=== PATIENT | female | born 1995 | race Caucasian/White ===

== ENCOUNTER 2017-03-19 02:00 | Inpatient (IN) | payer OTHER ==
--- NOTE | ~2017-03-19 | PA ---
Unit #: [id number] #: [id number] Patient: RYAN GARCIA [id number] [facility] [address] [place] [address] [id number] I MR#: [id number] NAME: RYAN GARCIA ROOM: P132 Age: 21 Sex: F Admission Date: 03/19/2017 : 1995 Date of Assessment: 03/19/2017 Attending Physician: Jarocho Jovel M.D. Admitting Physician: Jarocho Jovel M.D. Primary Care Physician: Primary Care Physician No PSYCHIATRIC ASSESSMENT DATE OF SERVICE 03/19/2017. IDENTIFYING DATA Ms. Garcia is a 21-year-old single white female, who is a resident of [place], [place], and was brought to the hospital accompanied by her family and initial assessment was completed at the [facility] in [place], [place]. CHIEF COMPLAINT "Panic attack and depression." HISTORY OF PRESENT ILLNESS Ms. Garcia is a 21-year-old white female with history of mood disorder, who was brought to the hospital by her family as a transfer from the [facility] in [place], [place], and upon presentation, the patient was seen to be acutely psychotic, agitated, aggressive, and hostile and code had to be called and she was initially given oral Thorazine without any calming down effect and she had to be given injection of Thorazine and injection of Benadryl in combination, and the patient was seen to be extremely agitated, irritable, psychotic, and out of touch with reality and reported increasing anxiety and depression and history of suicidal ideation as well and that she has not worked for the last 2 years due to anxiety and depression and reports smoking marijuana regularly to manage her depression and anxiety and was seen to be exhibiting significant mood instability with agitation, irritability, impulsivity, and was seen to be out of touch with reality, and as such, recommendation for inpatient level of care for safety and stabilization was made and the patient was transferred to us. SUBSTANCE ABUSE HISTORYDOS The patient has a history of alcohol, cannabis, cocaine, and benzodiazepines, and currently, she reports cannabis to be her drug of choice as she reports that she has been using cannabis on a regular basis, though she has snorted cocaine in the last week as well. PAST PSYCHIATRIC HISTORY The patient has had a history of outpatient psychiatric treatment. Review of the medical records indicate currently she is not active in any treatment program, is not seeing a psychiatrist, and is not taking any psychotropic medications. PAST MEDICAL HISTORY Unit #: [id number] #: [id number] Patient: RYAN GARCIA Anemia and scoliosis. PERSONAL AND SOCIAL HISTORY A 21-year-old white female, who reports that she is single, unemployed, and lives at home with her family and has poor social support system. MENTAL STATUS EXAMINATION Young white female, who was casually dressed with fair personal hygiene, appears to be in no acute distress or discomfort. She was awake and alert on interaction with intact orientation to time, place, and person. Her mood was anxious and depressed with a congruent affect. Her speech was slow and restricted in content. Her thought processes were disorganized with some looseness of associations and flight of ideas and paranoid ideations and delusional behavior. Her insight and judgment remain significantly impaired. DIAGNOSTIC IMPRESSION Psychiatric: Bipolar disorder, most recent episode depressed, recurrent, moderate, without psychotic features; generalized anxiety disorder; cannabis abuse, moderate; and cocaine abuse, moderate. Medical: Anemia and scoliosis. Stressors: Moderate psychosocial stressors. TREATMENT PLAN 1. The patient has presented with a history of substance abuse and mood disorder and has been decompensating and will need inpatient hospitalization for safety and stabilization. We will start her back on her home medications and we will adjust the medications and monitor response. 2. Supportive therapy was provided to the patient. 3. Safe, structured, and nourishing environment will be provided. ESTIMATED LENGTH OF STAY 4 to 5 days. ABILITY TO HELP SELF Limited. WILLINGNESS TO HELP SELF The patient appears to be willing to help self. STRENGTHS 1. Communicative. 2. Cooperative. PROBLEMS 1. Chronic dysphoric symptoms. 2. Poor social support system. DISCHARGE CRITERIA This will be contingent upon the patient's ability to show resolution of her depression and anxiety and her ability to stay safe to herself, particularly after discharge from the hospital. Dictated by... Jarocho Jovel M.D. Unit #: [id number] #: [id number] Patient: RYAN GARCIA IAA/modl TD: 03/20/2017 20:27 JOB #: [id number] PSYCHIATRIC ASSESSMENT Page 1 of 1 X Jarocho Jovel MD PSYCHIATRIC ASSESSMENT
--- NOTE | ~2017-03-19 | HP ---
Unit #: [id number] #: [id number] Patient: CORTNEY GRIGGS [id number] [place] [address] [id number] I MR#: [id number] NAME: CORTNEY GRIGGS ROOM: P132 Age: 21 Sex: F Admission Date: 03/19/2017 : 1995 Attending Physician: Jarocho Jovel M.D. Admitting Physician: Jarocho Jovel M.D. Primary Care Physician: Primary Care Physician No HISTORY AND PHYSICAL HISTORY OF PRESENT ILLNESS Cortney is a 21 year old admitted to [address] [place] [address] with depression and increased anxiety. PAST MEDICAL HISTORY History of anemia. PAST SURGICAL HISTORY Pilonidal cyst resected. ALLERGIES Sulfa. SOCIAL HISTORY Smokes 1 pack per day. Drinks alcohol on occasion. Admits to using marijuana daily and regular use of cocaine and benzodiazepines. FAMILY HISTORY Medically noncontributory. REVIEW OF SYSTEMS CONSTITUTIONAL: No fever or chills. HEENT: Denies any sore throat, ear pain or runny nose. CARDIOVASCULAR: Denies chest pain, irregular heart rhythm or palpitations. CHEST: Denies shortness of breath or cough. No hemoptysis. GASTROINTESTINAL: Denies nausea, vomiting, diarrhea or chronic constipation. ENDOCRINE: Denies history of increased thirst or urination. No recent significant weight loss or gain. GENITOURINARY: Denies dysuria, frequency, or hematuria. SKIN: Denies any rashes. HEMATOLOGIC: Denies history of increased bleeding or bruising. MUSCULOSKELETAL: Denies any hot, swollen joints. No generalized muscle pain. NEUROLOGIC: Denies problems with vision or speech. No frequent, severe headaches. No numbness, tingling or weakness in any extremities. Denies loss of bladder or bowel control. CURRENT MEDICATIONS Detox protocol. PHYSICAL EXAMINATION GENERAL: Alert, well-nourished, in no apparent distress. Unit #: [id number] #: [id number] Patient: CORTNEY GRIGGS VITAL SIGNS: Blood pressure 110/62, heart rate 80, respirations 16, temperature 98.6. SKIN: Warm and dry without rash or lesion. HEENT: Normocephalic. TMs not viewed. Oral and nasal passages clear. Conjunctivae clear. PERRLA. EOMs intact. NECK: Supple without lymphadenopathy or thyromegaly. HEART: Regular rate and rhythm without murmur. LUNGS: Clear. ABDOMEN: Soft, nontender. : Not done. EXTREMITIES: No evidence of cyanosis, clubbing or edema. Moves all without focal deficit. NEUROLOGICAL: Grossly within normal limits. Cranial Nerves: II: Visual kc are intact. III, IV AND : Extraocular movements are intact. Pupils are equal, round and reactive to light. V: Facial sensation is grossly normal. VII: Facial movements and expression are normal. VIII: Auditory acuity grossly intact. IX, X: Uvula is midline. Phonation is normal. XI: Patient shrugs shoulders and turns head normally. XII: Tongue protrudes in the midline. Sensory and Motor Function: Sensory and motor sensation is grossly normal. Motor: moves all extremities well. Coordination: Gait is normal. Deep Tendon Reflexes: Intact. IMPRESSION Psychiatric admission. RECOMMENDATIONS PSYCHIATRIC: Per psychiatrist. MEDICAL: See no contraindication to participate in facility's activities. MEDICAL PROGNOSIS Good. MEDICAL CONDITION Stable. Dictated by... Edi AlAJyothi. for Joon Colbert/johnathan TD: 03/19/2017 20:17 JOB #: [id number] Unit #: [id number] #: [id number] Patient: CORTNEY GRIGGS HISTORY AND PHYSICAL Page 1 of 1 X Ilana Victor HISTORY AND PHYSICAL
--- NOTE | ~2017-03-19 | PN ---
Unit #: [id number] #: [id number] Patient: RYAN GRIGGS [id number] [facility] [address] [place] [address] [id number] I MR#: [id number] NAME: RYAN GRIGGS ROOM: 73 Age: 21 Sex: F Admission Date: 03/19/2017 : 1995 Attending Physician: Jarocho Jovel M.D. Admitting Physician: Jarocho Jovel M.D. Primary Care Physician: Primary Care Physician Cathleen RANGEL PROGRESS NOTES NOTE: Mental status examination and treatment plan are dictated as an addendum under J# [id number]. DATE March 21, 2017 DISCUSSION Ms. Griggs is a 21-year-old white female, with mood disorder and psychosis, who was seen today and chart was reviewed and the case was discussed with the staff. She remains anxious, withdrawn, disorganized and seclusive to herself, however, she has not shown any agitation or aggression and seems to be doing somewhat better with her psychosis, and depression. Dictated by... Joon Magana/erin TD: 03/22/2017 12:10 JOB #: [id number] [facility] PROGRESS NOTES Page 1 of 1 X Jarocho Jovel MD PROGRESS NOTE
--- NOTE | ~2017-03-19 | PN ---
Unit #: [id number] #: [id number] Patient: RYAN GRIGGS [id number] [facility] [address] [place] [address] [id number] I MR#: [id number] NAME: RYAN GRIGGS ROOM: 32 Age: 21 Sex: F Admission Date: 03/19/2017 : 1995 Attending Physician: Jarocho Jovel M.D. Admitting Physician: Jarocho Jovel M.D. Primary Care Physician: Primary Care Physician Cathleen HAGEN NOTES DATE 03/20/2017 DISCUSSION Ms. rGiggs is a 21-year-old white female who was seen today and chart was reviewed and case was discussed with the staff. She has been anxious, restless, agitated ____ a day yesterday with multiple injections of p.r.n. medications to be given to cut down on agitation and aggression and she continues to be that way this morning and showing very poor insight into her situation and crying and sitting on the floor and wanting to leave and showing very poor insight into her situation. As such, will continue to monitor her response. Will make further adjustments on her medications. Dictated by... Joon Magana/johnathan TD: 03/20/2017 17:44 JOB #: [id number] JUAN CARLOS HAGEN NOTES Page 1 of 1 X Jarocho Jovel MD PROGRESS NOTE
--- NOTE | ~2017-03-19 | PN ---
Unit #: [id number] #: [id number] Patient: RYAN GRIGGS [id number] [facility] [address] [place] [address] [id number] I MR#: [id number] NAME: RYAN GRIGGS ROOM: P184 Age: 21 Sex: F Admission Date: 03/19/2017 : 1995 Attending Physician: Jarocho Jovel M.D. Admitting Physician: Jarocho Jovel M.D. Primary Care Physician: Primary Care Physician Cathleen HAGEN NOTES DATE March 22, 2017 DISCUSSION Ms. Griggs is a 21-year-old white female, who was seen today and chart was reviewed and the case was discussed with the staff. She appears to be doing somewhat better and has been calm and cooperative with the treatment recommendations and she has been taking the medications and tolerating them fairly well with no reported side effects. MENTAL STATUS EXAMINATION Young white female, who was casually dressed with fair personal hygiene and appears to be in no acute distress or discomfort. The patient was awake and alert on interaction with intact orientation. Her mood was anxious with a congruent affect. The patient denies any suicidal or homicidal ideations. Her insight and judgment remain slightly impaired. TREATMENT PLAN We will continue her on her current medications and treatment protocol, and will monitor her response to the medications, and make further adjustments as needed. Dictated by... oJon Maagna/erin TD: 03/23/2017 10:08 JOB #: [id number] [facility] PROGRESS NOTES Page 1 of 1 X Jarocho Jovel MD PROGRESS NOTE
--- NOTE | ~2017-03-19 | PN ---
Unit #: [id number] #: [id number] Patient: RYAN GRIGGS [id number] [facility] [address] [place] [address] [id number] I MR#: [id number] NAME: RYAN GRIGGS ROOM: 84 Age: 21 Sex: F Admission Date: 03/19/2017 : 1995 Attending Physician: Jarocho Jovel M.D. Admitting Physician: Jarocho Jovel M.D. Primary Care Physician: Primary Care Physician Cathleen HAGEN NOTES DATE March 23, 2017 DISCUSSION Ms. Griggs is a 21-year-old white female, who was seen today and chart was reviewed and the case was discussed with the staff. The patient has been anxious, withdrawn, and rather seclusive to herself. Meanwhile, she has been cooperative with the treatment recommendations and she has been exhibiting very impulsive and child-like attitude and behavior, and has been pushing to leave the hospital, and trying to minimize her symptoms and presentation. MENTAL STATUS EXAMINATION Young white female, who was casually dressed with fair personal hygiene and appears to be in no acute distress or discomfort. She was awake and alert with intact orientation. Her mood was anxious with a congruent affect. The patient denies any suicidal or homicidal ideations. Her insight and judgment remain slightly impaired. TREATMENT PLAN We will continue her on her current treatment protocol, and will monitor her response, and make further adjustments as needed. Dictated by... Joon Magana/erin TD: 03/24/2017 10:40 JOB #: [id number] Unit #: [id number] #: [id number] Patient: RYAN GRIGGS JUAN CARLOS PROGRESS NOTES Page 1 of 1 X Jarocho Jovel MD PROGRESS NOTE
--- NOTE | ~2017-03-19 | DS ---
Unit #: [id number] #: [id number] Patient: RYAN GARCIA [id number] [facility] [address] [place] [address] [id number] I MR#: [id number] NAME: RYAN GARCIA ROOM: P184 Age: 21 Sex: F Admission Date: 03/19/2017 : 1995 Discharge Date: 03/24/2017 Attending Physician: Jarocho Jovel M.D. Primary Care Physician: Primary Care Physician No DISCHARGE SUMMARY IDENTIFYING DATA Ms. Garcia is a 21-year-old single white female, who is a resident of [place], [place], and was brought to the hospital accompanied by her family. Initial assessment was completed at the [facility] in [place], [place]. DISCHARGE DIAGNOSES Psychiatric: Bipolar disorder, most recent episode depressed, recurrent, moderate, without psychotic features; generalized anxiety disorder; cannabis abuse, moderate; cocaine abuse, moderate. Medical: Anemia, scoliosis. Stressors: Moderate psychosocial stressors. HISTORY OF PRESENT ILLNESS Please see initial psychiatric evaluation for details. PAST PSYCHIATRIC HISTORY Please see initial psychiatric evaluation for details. PAST MEDICAL HISTORY Please see initial psychiatric evaluation for details. HOSPITAL COURSE The patient was admitted to the adult psychiatric unit at [facility]a [facility] and was oriented to the hospital environment. Routine p.r.n. medications were initiated and upon initial presentation, the patient was seen to be extremely agitated, irritable, hostile, and p.r.n. medications had to be given and she was then started on Paxil and Risperdal and was closely monitored. She was taking the medications regularly and was tolerating them fairly well and was able to show a decent therapeutic response and as such, it was decided that she will be discharged home and will continue treatment on an outpatient basis. DISCHARGE MEDICATIONS Risperdal 1 mg b.i.d. for psychosis, Paxil 20 mg at bedtime for depression. DISCHARGE CONDITION Stable. PROGNOSIS Fair. Dictated by... Unit #: [id number] #: [id number] Patient: RYAN GARCIA Jarocho Jovel M.D. IAA/modl TD: 03/24/2017 07:10 JOB #: [id number] DISCHARGE SUMMARY Page 1 of 1 X Jarocho Jovel MD DISCHARGE SUMMARY
--- NOTE | ~2017-03-19 | PN ---
Unit #: [id number] #: [id number] Patient: RYAN GRIGGS [id number] [facility] [address] [place] [address] [id number] I MR#: [id number] NAME: RYAN GRIGGS ROOM: [facility] Age: 21 Sex: F Admission Date: 03/19/2017 : 1995 Attending Physician: Jarocho Jovel M.D. Admitting Physician: Jarocho Jovel M.D. Primary Care Physician: Primary Care Physician No JAVIERCE PROGRESS NOTES ADDENDUM REPORT DATE March 21, 2017 DISCUSSION MENTAL STATUS EXAMINATION Young white female, who was casually dressed with fair personal hygiene and appears to be in no acute distress or discomfort. She was awake and alert with impaired attention and concentration. Her mood is anxious with a congruent affect. The patient denies any suicidal or homicidal ideation. Her insight and judgment remain significantly impaired. TREATMENT PLAN 1. We will continue her on her current medications and treatment protocol, and will monitor her response to the medications, and make further adjustments as needed. 2. We will continue to followup. Dictated by... Joon Magana/erin TD: 03/22/2017 12:57 JOB #: [id number] [facility] PROGRESS NOTES Page 1 of 1 X Jarocho Jovel MD PROGRESS NOTE
[2017-03-20 12:14] LABS: BASOPHIL# 0.1 X10e3 (0-0.3); BASOPHIL% 0.9 % (0-2.5); EOSINOPHIL# 0.3 X10e3 (0-0.7); EOSINOPHIL% 3.7 % (0.0-7.0); HEMATOCRIT 39.2 % (35.0-45.0); HEMOGLOBIN 12.9 gm/dL (12.0-16.0); LYMPHOCYTE# 1.6 X10e3 (1.0-3.5); LYMPHOCYTE% 24.1 % (17.0-45.0); MEAN CELL VOLUME 95.2 FL (83-96); MEAN CORPUSCULAR HEMOGLOBIN 31.4 PG (28-34); MEAN PLATELET VOLUME 8.1 FL (6.5-11.5); MONOCYTE# 0.7 X10e3 (0-1.0); MONOCYTE% 10.1 % (3.0-12.0); NEUTROPHIL# 4.2 X10e3 (1.5-7.1); NEUTROPHIL% 61.2 % (40-75); PLATELET COUNT 226 X10e3 (140-420); RED BLOOD COUNT 4.11 X10e (3.90-5.30); RED CELL DISTRIBUTION WIDTH 13.4 % (11.0-15.5); WHITE BLOOD COUNT 6.8 X10e3 (4.0-10.5)
[2017-03-20 12:17] LABS: DIFF IND NO
[2017-03-20 12:31] LABS: ALBUMIN SERUM 3.7 g/dL (3.5-5.0); BILIRUBIN,TOTAL 1.4 mg/dL (0.2-2.0); BUN/CREATININE RATIO 15.71; CALCIUM SERUM 8.8 mg/dL (8.4-10.2); CREATININE SERUM 0.7 mg/dL (0.6-1.4); GLOM FILT RATE Estimated 123.9 mL/min (>60); POTASSIUM 3.6 mmol/L (3.5-5.1); PROTEIN TOTAL SERUM 6.2 g/dL (6.0-8.3)
[2017-03-24 09:58] LABS: URINE APPEARANCE CLOUDY; URINE BILIRUBIN NEG (NEG); URINE BLOOD NEG (NEG); URINE COLOR YELLOW; URINE GLUCOSE NEG (NEG); URINE KETONE NEG (NEG); URINE LEUKOCYTE ESTERASE TRACE (NEG); URINE NITRATE NEG (NEG); URINE PROTEIN NEG (NEG); URINE SPECIFIC GRAVITY 1.021 (1.003-1.035); URINE UROBILINOGEN 0.2 MG/DL (NEG)
[2017-03-24 10:01] LABS: URBCS1 AUWI 0-2 /[HPF] (0-2); URINE BACTERIA AUWI 2+ (NEGATIVE); URINE SQUAMOUS EPITHELIAL CELL MOD /[HPF]; UWBCS1 AUWI 25-50 (0-5)
[2017-03-24 10:50] LABS: AMPHETAMINE NEG (NEG); BARBITURATES NEG (NEG); BENZODIAZEPINES POS (NEG); COCAINE NEG (NEG); MARIJUANA POS (NEG); OPIATES NEG (NEG); TRICYCLIC ANTIDEPRESSANTS NEG (NEG); U METHADONE NEG (NEG)
== END 2017-03-24 09:25 | disposition home or self-care (01) | DRG 885 ==
LOC: P1E 06:51 → P1S 06:51 → P1E 03-22 14:14
PROVIDERS: Psychiatry & Neurology Psychiatry
PROC: HZ2ZZZZ Detoxification Services for Substance Abuse Treatment (ICD-10-PCS; principal; 2017-03-19)
DX: F31.32 Bipolar disorder, current episode depressed, moderate (principal); F14.20 Cocaine dependence, uncomplicated; F41.9 Anxiety disorder, unspecified; F12.20 Cannabis dependence, uncomplicated; D64.9 Anemia, unspecified; M41.9 Scoliosis, unspecified; F17.210 Nicotine dependence, cigarettes, uncomplicated; Z88.2 Allergy status to sulfonamides
CPT/HCPCS: 80053; 80307; 81003; 85025; 86592; J1200; J3230